=== PATIENT | male | born 1960 | race Asian ===

== ENCOUNTER 2019-04-01 00:05 | Emergency (ER) | payer MEDICARE, OTHER ==
[~2019-04-01] VITALS: Ht 160 cm; Wt 72.7 kg
[2019-04-01] MEDS ORDERED: METF-960 PO (00:32)
[2019-04-01] MEDS ORDERED: AMLO5TAB9 PO (00:32)
[2019-04-01] MEDS ORDERED: GLIP2.5ER PO (00:32)
[2019-04-01] MEDS ORDERED: LISI-662 PO (00:32)
[2019-04-01 00:34] LABS: GLUCOSE,POINT OF CARE 212 MG/DL (70-110)
[2019-04-01] MEDS ORDERED: METO25XL PO (00:34)
[2019-04-01] MEDS ORDERED: ATOR20TA86 PO (00:34)
[2019-04-01] MEDS ORDERED: ASPI-556 PO (00:34)
[2019-04-01] MEDS ORDERED: FURO40 PO (00:34)
[2019-04-01 01:07] VITALS: BP 147/76
== END 2019-04-01 02:19 | disposition home or self-care (01) ==
LOC: EMS 00:10
DX: H60.92 Unspecified otitis externa, left ear (principal); I11.0 Hypertensive heart disease with heart failure; I50.9 Heart failure, unspecified; I25.10 Atherosclerotic heart disease of native coronary artery without angina pectoris; E78.00 Pure hypercholesterolemia, unspecified; Z79.82 Long term (current) use of aspirin; Z79.84 Long term (current) use of oral hypoglycemic drugs; Z79.899 Other long term (current) drug therapy

== ENCOUNTER 2019-07-13 02:35 | Emergency (ER) | payer MEDICARE, OTHER ==
[~2019-07-13] VITALS: Ht 160 cm; Wt 69.5 kg
[~2019-07-13 02:35] MED LIST: AMLO5TAB9 PO; ASPI-556 PO; ATOR20TA86 PO; FURO40 PO; GLIP2.5ER PO; LISI-662 PO; METF-960 PO; METO25XL PO
[2019-07-13 02:51] LABS: GLUCOSE,POINT OF CARE 130 MG/DL (70-110)
[2019-07-13 03:28] LABS: BASOPHILS % (AUTO) 0.7 % (0.0-2.0); EOSINOPHILS % (AUTO) 4.1 % (1.0-6.0); HEMATOCRIT 36.9 % (41-53); HEMOGLOBIN 12.2 g/dL (13.5-17.5); LYMPHOCYTES % (AUTO) 27.9 % (22.0-44.0); MEAN CORPUSCULAR HEMOGLOBIN 27.5 pg (26.0-34.0); MEAN CORPUSCULAR VOLUME 83 fL (80-100); MONOCYTES # (AUTO) 1.1 K/uL (0.1-1.0); MONOCYTES % (AUTO) 10.4 % (2.0-9.0); NEUTROPHILS % (AUTO) 56.9 % (40.0-70.0); PLATELET COUNT (AUTO) 339 K/uL (150-450); RED BLOOD CELL COUNT(AUTO) 4.42 MIL/uL (4.50-5.90); RED CELL DISTRIBUTION WIDTH 14.6 % (11.5-14.5)
[2019-07-13 03:30] LABS: APPEARANCE,URINE CLEAR (CLEAR); BILIRUBIN,URINE NEGATIVE (NEGATIVE); GLUCOSE, URINE (UA) NEGATIVE (NEGATIVE); KETONES,URINE NEGATIVE (NEGATIVE); LEUKOCYTE ESTERASE ,URINE NEGATIVE (NEGATIVE); NITRATE,URINE NEGATIVE (NEGATIVE); OCCULT BLOOD,URINE TRACE (NEGATIVE); PROTEIN,URINE SEE CONFIRM (NEGATIVE); UROBILINOGEN,URINE 0.2 mg/dL (<=1.0)
[2019-07-13 03:37] LABS: CALCIUM, TOTAL 9.3 mg/dL (8.8-10.5); CREATININE 2.42 mg/dL (0.60-1.30); POTASSIUM 3.9 mmol/L (3.5-5.1)
[2019-07-13 03:38] LABS: BACTERIA,URINE None Seen /HPF (None Seen); SQUAMOUS EPITHELIAL CELL,UR Rare /LPF (None Seen); WBC,URINE 0-2 /HPF (0-5)
[2019-07-13 03:39] LABS: SULFOSALICYLIC ACID,URINE 3+ (Negative)
[2019-07-13 03:43] LABS: BILIRUBIN,TOTAL 0.4 mg/dL (0.1-1.0); TOTAL PROTEIN, SERUM 7.6 g/dL (6.4-8.2)
[2019-07-13 05:13] VITALS: BP 157/92
== END 2019-07-13 05:22 | disposition home or self-care (01) ==
LOC: EMS 02:35
DX: K80.20 Calculus of gallbladder without cholecystitis without obstruction (principal); K85.90 Acute pancreatitis without necrosis or infection, unspecified; F17.210 Nicotine dependence, cigarettes, uncomplicated; I25.10 Atherosclerotic heart disease of native coronary artery without angina pectoris; I11.0 Hypertensive heart disease with heart failure; I50.9 Heart failure, unspecified; E78.00 Pure hypercholesterolemia, unspecified; Z79.82 Long term (current) use of aspirin; Z79.84 Long term (current) use of oral hypoglycemic drugs; Z79.899 Other long term (current) drug therapy
CPT/HCPCS: 74022; 76705; 93005; 99406